=== PATIENT | female | born 1965 | race Caucasian/White ===

== ENCOUNTER 2024-05-18 08:35 | Emergency (ER) | payer BC ==
[~2024-05-18] VITALS: Ht 165.1 cm; Wt 68.0 kg
[2024-05-18 10:16] VITALS: BP 100/73; TEMP 97.7; O2SAT 99
== END 2024-05-18 10:16 | disposition home or self-care (01) ==
LOC: ER 08:48
DX: S63.501A Unspecified sprain of right wrist, initial encounter (principal); W10.9XXA Fall (on) (from) unspecified stairs and steps, initial encounter; Y93.01 Activity, walking, marching and hiking; Y92.89 Other specified places as the place of occurrence of the external cause; Y99.8 Other external cause status; Z88.2 Allergy status to sulfonamides
CPT/HCPCS: 73080-TC; 73090-TC